=== PATIENT | male | born 1965 | race Caucasian/White ===

== ENCOUNTER 2016-08-18 13:38 | Emergency (ER) | payer BC ==
[~2016-08-18] VITALS: Ht 152.4 cm; Wt 65.8 kg
[2016-08-18 14:27] VITALS: BP 109/69
--- NOTE | 2016-08-18 18:49 | Emergency Room Report ---
History of Present Illness General Chief Complaint: Syncope Source: Patient Present Illness HPI 51-year-old male presents to ED status post syncopal episode. Per EMS patient had syncopal episode while in dentist chair. Patient was having a tooth extraction today. On arrival patient states he feels fine. States that he received multiple doses of Novocain for the pain. However states the pain was so much that he likely passed out. Patient denies hitting his head or LOC. Patient denies chest pain or shortness of breath. States he feels fine. No aggravating relieving factors. Denies any other associated symptoms Allergies: Coded Allergies: No Known Allergies (Unverified , 08/18/16) Patient History Past Medical History: none Past Surgical History: none Social History: Denies: alcohol use, drug use, smoking Immunizations: UTD Reviewed Nursing Documentation: PMH: Agreed, PSxH: Agreed Nursing Documentation-PMH Past Medical History: No Stated History Review of Systems All Other Systems: negative except mentioned in HPI Physical Exam Vital Signs Date Time Temp Pulse Resp B/P Pulse Ox O2 Delivery O2 Flow Rate FiO2 08/18/16 13:31 97.9 60 18 122/8 98 Room Air Sp02 EP Interpretation: reviewed, normal General Appearance: no apparent distress, alert, GCS 15, non-toxic Head: normocephalic, atraumatic Eyes: bilateral eye PERRL, bilateral eye normal inspection ENT: hearing grossly normal, normal pharynx, no angioedema, normal voice Neck: full range of motion, supple/symm/no masses Respiratory: chest non-tender, lungs clear, normal breath sounds, speaking full sentences Cardiovascular #1: regular rate, rhythm, no edema Cardiovascular #2: 2+ carotid (R), 2+ carotid (L), 2+ radial (R), 2+ radial (L) , 2+ dorsalis pedis (R), 2+ dorsalis pedis (L) Gastrointestinal: normal bowel sounds, non tender, soft, non-distended, no guarding, no rebound Rectal: deferred Genitourinary: normal inspection, no CVA tenderness Musculoskeletal: back normal, gait/station normal, normal range of motion, non- tender Neurologic: alert, oriented x3, responsive, motor strength/tone normal, sensory intact, speech normal Psychiatric: judgement/insight normal, memory normal, mood/affect normal, no suicidal/homicidal ideation Reflexes: 3+ bicep (R), 3+ bicep (L), 3+ tricep (R), 3+ tricep (L), 3+ knee (R) , 3+ knee (L) Skin: normal color, no rash, warm/dry, well hydrated Lymphatic: no adenopathy Medical Decision Making Diagnostic Impression: Primary Impression: Syncope Qualified Codes: R55 - Syncope and collapse ER Course Hospital Course 51-year-old male presents ED s/p syncopal episode. no complaints now Differential diagnoses include: arrythmia, dehydration, intracranial bleed, seizure Clinical course Patient placed on stretcher. on cardiac technologist. After initial history physical exam reveals him middle-age male in no acute distress. Physical exam unremarkable. Patient has steady gait. Patient declined IV access or blood draw. States he would prefer to be discharged at this time. Patient did agree to an EKG EKG - NSr, no acute changes interptreted by me Upon reassessment patient states he feels better wishes to go home. Given lack of risk factors and given the fact that patient was being medicated during this procedure when the syncopal episode occurred I bleed patient can be discharged without further workup at this time. However encourage patient to followup with PMD I. I feel this is a highly complex case requiring extensive working including EKG/Rhythm strip, Xray/CT/US, Blood/urine lab work, repeat exams while in ED, and administration of strong opiates/narcotics for pain control, admission to hospital or close patient follow up. Diagnosis - syncope Stable and discharged to home. Followup with PMD. Return to ED if symptoms recur or worsen EKG Diagnostic Results Rate: normal Rhythm: NSR ST Segments: no acute changes ASA given to the pt in ED: No Rhythm Strip Diag. Results EP Interpretation: yes Rhythm: NSR, no PVC's, no ectopy Last Vital Signs Date Time Temp Pulse Resp B/P Pulse Ox O2 Delivery O2 Flow Rate FiO2 08/18/16 14:27 58 17 109/69 98 Room Air 08/18/16 14:27 98.7 Status: improved Disposition: HOME, SELF-CARE Condition: Stable Referrals: NOT CHOSEN IPA/,REFERRING (PCP) Patient Instructions: Syncope, Vasovagal Syncope, Adult CHENTE ESTRADA M.D. Aug 18, 2016 18:49
== END 2016-08-18 14:30 | disposition home or self-care (01) ==
LOC: EDBD 13:38 → EMR 14:02
DX: R55 Syncope and collapse (principal)
CPT/HCPCS: 93005; 99283